=== PATIENT | female | born 1935 | race Two or more races ===

== ENCOUNTER 2017-12-04 15:01 | Outpatient (CLI) | payer OTHER | END 2017-12-04 15:13 | disposition home or self-care (01) | LOC: EDBD 15:01 → RAD 501 15:01 | DX: M25.571 Pain in right ankle and joints of right foot (principal) ==

== ENCOUNTER 2017-12-06 11:04 | Outpatient (CLI) | payer OTHER | END 2017-12-06 14:59 | disposition home or self-care (01) | LOC: EDBD 11:04 → SONOGRAMA 11:04 | DX: M79.671 Pain in right foot (principal); G57.61 Lesion of plantar nerve, right lower limb ==

== ENCOUNTER 2017-12-11 14:19 | Outpatient (CLI) | payer OTHER | END 2017-12-11 14:29 | disposition home or self-care (01) | LOC: NUCLEAR 14:19 → EDBD 14:19 → NUCLEAR 14:29 | DX: M81.0 Age-related osteoporosis without current pathological fracture (principal) ==

== ENCOUNTER → 2017-12-13 15:54 | Outpatient (CLI) | payer OTHER | END | disposition home or self-care (01) | LOC: EDBD 15:54 → LAB 15:54 | DX: E55.9 Vitamin D deficiency, unspecified (principal); E21.2 Other hyperparathyroidism; M81.8 Other osteoporosis without current pathological fracture; E56.1 Deficiency of vitamin K; E88.89 Other specified metabolic disorders; E83.42 Hypomagnesemia; M85.88 Other specified disorders of bone density and structure, other site ==